=== PATIENT | male | born 2000 | race African-American/Black ===

== ENCOUNTER 2025-02-05 19:57 | Emergency (ER) | payer SELFPAY ==
[2025-02-05] VITALS (14 sets, daily range): BP systolic 134–145; BP diastolic 83–92; PULSE 72–94; RESP 15–26; TEMP 37.2; O2SAT 98–100
--- OUTSIDE RECORDS SUMMARY | 2025-02-05 22:30 | XMS_ITS | Clinical Summary ---
Author Organization [facility] Address [facility] [place] [address] Care Team Providers Care Fitness And Wellness Manager Name Role Phone George Lynn MD Unavailable Violeta Núñez PhD Unavailable Claudia Felix PLASTICS BENCH MECHANIC Unavailable Alison Troncoso B.A. Unavailable Unavailable Don Niño MD Primary Care Provider [phone] Mercedes Quiles MA Unavailable Unavailable Lois Maxwell Unavailable Unavailable Allergies No known active allergies Medications fluticasone propionate (FLOVENT HFA) 110 mcg/actuation inhalerIndicati ons:Asthma Inhale 2 puffs 2 (two) times a day Rinse mouth with water after use. Do not swallow. 3 each 4 01/05/2023 Active albuterol HFA (PROVENTIL HFA,VENTOLIN HFA,PROAIR HFA) 90 mcg/actuation inhalerIndicati ons:Asthma Inhale 2 puffs every 6 (six) hours as needed for wheezing 1 each 1 01/05/2023 Active Active Problems Problem Noted Date Diagnosed Date Molluscum contagiosum 01/19/2020 Assessment & Plan (01/19/2020 3:15 PM CDT): Present on R arm and L eyelid No intervention required. Can see Dermatology if he likes. 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 [employer] scholarship information given. Assessment & Plan (03/17/2019 9:51 AM CDT): -CBC and CMP today with results pending. -Scholarship information given for childhood cancer survivors. 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 CBC, BMP, Ferritin, Triglycerides. Return for annual visits. Regarding report of recurrent boils, Doc needs to schedule an appointment with his First Coat Sander. He can discuss concerns with pain at his port scar as well. Assessment & Plan (01/19/2020 3:16 PM CDT): Clinically remains in remission. CBC, BMP, Ferritin with normal results. Triglycerides pending. Assessment & Plan (03/17/2019 9:51 AM CDT): Clinically remains in remission. CBC, BMP, Ferritin, Triglycerides pending. Assessment & Plan (03/15/2018 9:51 AM CDT): CBC, BMP, Ferritin, Triglycerides drawn with normal results. Hypertension 11/07/2010 Resolved Problems Problem Noted Date Diagnosed Date Resolved Date Scar tissue 03/17/2019 02/10/2020 Assessment & Plan (03/17/2019 9:49 AM CDT): Sensitivity around port scar since his port was removed years ago. Scar not large, does not seem like a candidate for surgical revision. Furuncle 07/31/2012 02/10/2020 Assessment & Plan (03/15/2018 9:52 AM CDT): Will refer to dermatology for recommendations for prevention/treatment due to the chronic, frequent, bothersome nature and risk for infection with non-intact skin. Vomiting 06/07/2011 02/10/2020 Localized swelling of both lower legs 04/04/2011 02/10/2020 Immunizations Immunization Administration Dates Next Due Influenza, Quadrivalent, Rec ombinant, Egg Free, Preservative Free, Intramuscular 02/10/2020 Influenza, Quadrivalent, Spl it, Preservative Free, Intramuscular 04/05/2019 Tdap 01/05/2023 Surgical History Surgery Date Site/Laterality Comments BONE MARROW BIOPSY Biopsy Bone Marrow - no overt evidence of hemophagocytosis in pathology report, although rare hemophagocytes were seen by Dr. 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 (Added by TW Conv) CENTRAL VENOUS CATHETER INSERTION Central IV Line With Subcutaneous Foreman Mediport - (Added by TW Conv) Medical History Medical History Date Comments Personal history of other di seases of the respiratory system Personal history of asthma - (Added by TW Conv) Essential (primary) hypertension Hypertension - steroid-induced (Added by TW Conv) Other histiocytosis syndromes (HCC) Hemophagocytic syndrome - (Added by TW Conv) Family History Medical History Relation Name Comments Hyperlipidemia Father Lupus Mother Asthma Other Asthma - father (Added by TW Conv) Relation Name Status Comments Father Alive Mother Alive Other Social History Tobacco Use Types Packs/Day Years Used Date Smoking Tobacco: Never Smokeless Tobacco: Never Tobacco Cessation:Counseling Given: Not Answered Alcohol Use Standard Drinks/Week Comments Never 0 (1 standard drink = 0.6 oz pur e alcohol) AUDIT-C Answer Date Recorded Q1: How often do you have a drink containing alc ohol? Monthly or less 01/05/2023 Q2: How many drinks containi ng alcohol do you have on a typical day when you are drinking? 1 or 2 01/05/2023 Frequency of Binge Drinking Not on file 09/2022 Sex and Gender Information Value Date Recorded Sex Assigned at Not on file Legal Sex Male 1:33 AM CHIEF LIBRARIAN BRANCH Gender Identity Not on file Sexual Orientation Not on file Occupation Industry Job Start Date Job End Date student Not on file Not on file Not on file Obstetrics History Last Filed Vital Signs Vital Sign Reading Time Taken Comments Blood Pressure 111/79 01/05/2023 1:56 PM CDT Pulse 69 01/05/2023 1:56 PM CDT Temperature 36.5 C (97.7 F) 01/05/2023 1:56 PM CDT Respiratory Rate 18 01/02/2022 3:00 PM CDT Oxygen Saturation 98% 01/05/2023 1:56 PM CDT Inhaled Oxygen Concentration - - Weight 108.5 kg (239 lb 4.8 oz) 01/05/2023 1:56 PM CDT Height 183 cm (6' 0.05) 01/02/2022 3:00 PM CDT Body Mass Index 32.41 01/02/2022 3:00 PM CDT Plan of Treatment Health Maintenance Due Date Last Done Comments Depression Screening 2001 Varicella Vaccines (1 of 2 - 13+ 2-dose series) 2014 HPV Vaccines (1 - Male 3-dos e series) 2016 Meningococcal B Vaccine (1 o f 2 - Standard) 2017 Hepatitis B Screening 09/09/2019 Pneumococcal vaccine <65 (1 of 2 - PCV) 2020 Zoster Vaccine (1 of 2) 2020 Regular Well Visit/Exam 18-64 01/06/2024, 02/09/2021, 02/10/2020 Influenza Vaccine (#1) 2025 02/10/2020, 2018 DTaP/Tdap/Td Vaccine (2 - Td or Tdap) 01/05/2033 01/05/2023 Hepatitis C Screening Completed 01/05/2023 , 02/09/2021, 02/09/2021, Additional history exists Procedures Procedure Name Priority Date/Time Associated Diagnosis Comments HEPATITIS C ANTIBODY Routine 01/05/2023 2:26 PM CDT Screen for STD (sexually transmitted disease) from Last 3 Months or Most Recently Relevant to Health Maintenance Results * Hepatitis C antibody (01/05/2023 2:26 PM CDT) A-HCV II 0.08 Negative <0.90 [facility] Comment: <=0.9 negative 0.9-<1.0 borderline >= 1 positive Blood 01/05/2023 2:26 PM CDT 01/05/2023 2:43 PM CDT Don Niño MD LAB MICROBIOLOGY - GENERA L ORDERABLES Final Result Performing Organization Address City/State/[facility] Co de Phone Number [facility] [address] [place] [address] from Last 3 Months or Most Recently Relevant to Health Maintenance Insurance [facility] CHOICE PLUS [facility] CHOICE PLUS [facility] CHOICE PLUS CHOICE PLUS [place] [id number] [facility] CHOICE PLUS CHOICE PLUS [facility] CHOICE PLUS Care Teams Fitness And Wellness Manager Relationship Specialty Start Date End Date Don Niño MD PCP - General Internal Medicine 01/15/20 George Lynn MD Consulting Physician Pediatric Hematology and Oncology 02/25/19 Violeta Núñez, PhD Nurse Practitioner Pediatric Hematology and Oncology 02/25/19 Claudia Felix NP Nurse Practitioner Pediatric Hematology and Oncology 02/25/19 Alison Troncoso B.A. E Commerce Marketing ManagerKeno Clerk Hematology and Oncology 02/25/19 Mercedes Quiles MA E Commerce Marketing Manager 12/30/21 Lois Maxwell Primary Travel Manager 12/30/21
--- OUTSIDE RECORDS SUMMARY | 2025-02-05 22:30 | XMS_ITS | Clinical Summary ---
Author Organization [facility] Address [address] [place] [address] Care Team Providers Care Seater Assembler Name Role Phone Unavailable Primary Care Provider Unavailabl e Source Comments [facility],non-owned Affiliates and Associated Physician Practices is amultiple site organization consisting of ambulatory clinics and hospital sitesin [place], [place], [place] and [place]. This disclosure is being madepursuant to the Care Everywhere program and may not contain all information available regarding this patient. Last updated 18.[facility] Allergies No known active allergies Medications * Be aware that medications may not be up to date on this document. Alwaysverify current medications with the patient. albuterol HFA (Proventil; Ventolin; Proair) 108 (90 Base) MCG/ACT inhaler INHALE 2 PUFFS BY MOUTH EVERY 4 HOURS FOR 7 DAYS NEEDED FOR WHEEZING Active fluticasone hfa 110 (Flovent HFA 110) 110 MCG/ACT inhaler Inhale 2 (two) puffs by mouth 2 times daily 01/05/2023 Active Active Problems No known active problems Social History Tobacco Use Types Packs/Day Years Used Date Smoking Tobacco: Never Assessed PHQ-2 Answer Date Recorded Patient Health Questionnaire-2 Score 1 03/31/2024 Sex and Gender Information Value Date Recorded Sex Assigned at Not on file Legal Sex Male 8:30 AM CDT Gender Identity Not on file Sexual Orientation Not on file Plan of Treatment Health Maintenance Due Date Last Done Comments HIV SCREENING 2016 HPV VACCINE (1 - Male 3-dose series) 2016 MENINGOCOCCAL (Group B) VACCINE SHARED DECISION-MAKING (1 of 2 - Standard) 2017 HEPATITIS C SCREENING 09/04/2019 DTAP/TDAP/TD VACCINES (1 - Tdap) 2020 HEPATITIS B VACCINE (1 of 3 - 19+ 3-dose series) 2020 COVID-19 VACCINE (1 2023-2 5 season) 2024 DEPRESSION SCREENING 06/04/2024 INFLUENZA VACCINE (#1) 2025 0, 04/05/2019 ZOSTER VACCINE (1 of 2) 09/09/2051 HIB VACCINE Aged Out No longer eligi ble based on patient's age to complete this topic MENINGOCOCCAL GROUPS A/C/Y/W VACCINE Aged Out No longer eligible b ased on patient's age to complete this topic PNEUMOCOCCAL VACCINE Aged Out No long er eligible based on patient's age to complete this topic Insurance [facility]
--- NOTE | 2025-02-05 22:41 | ED_ITS ---
HPI - General Adult General Chief complaint: Unspecified Stated complaint: off balance, fatigue, light headed x4 days Time Seen by Provider: 02/05/25 21:26 History of Present Illness HPI narrative: Patient is a 24-year-old male who presents to the ER complaints of lightheadedness, headache, fatigue, and ?feeling off balance. He reports his symptoms started earlier today. Patient also endorses slight shortness of breath when he was working out. He reports last time he had the symptoms was in 2020 when he had COVID. Patient is requesting STD testing, mono test, and COVID test. He reports he recently had a contact with someone who was positive for mono. Patient endorses a history of asthma and HLH. He denies any urinary symptoms, recent fevers, chest pain or cough. Related Data Allergies Allergy/AdvReac Type Severity Reaction Status Date / Time No Known Allergies Allergy Verified 02/05/25 20:38 Review of Systems 2 Review of Systems: All systems reviewed & are unremarkable except as noted in HPI and below Exam 2 Narrative: GENERAL: Well appearing, well-nourished, non-toxic, in no acute distress. HEAD: Normocephalic, atraumatic. NECK: Supple. No adenopathy, no masses. RESPIRATORY: Airway patent, respirations nonlabored. Clear to auscultation bilaterally, no rales, rhonchi, wheezing. CARDIOVASCULAR: Regular rate and rhythm without murmurs, rubs, or gallops. Peripheral pulses 2+ and equal bilaterally. ABDOMINAL: Soft, nontender, nondistended, no hepatosplenomegaly. Normoactive BS. MUSCULOSKELETAL: Moves all extremities. Strength/ROM intact without gross deformities. SKIN: Warm, dry, normal color. No rashes. NEURO: A&O X3. Speech clear. Cranial nerves II-XII intact. No ataxic movements. PSYCHIATRIC: Appropriate mood and affect. Normal interaction. Course Vital Signs Vital signs: Vital Signs Temperature 37.2 C 02/05/25 20:34 Pulse Rate 75 02/05/25 20:34 Respiratory Rate 16 02/05/25 20:34 Blood Pressure 145/83 H 02/05/25 20:34 Pulse Oximetry 98 02/05/25 20:34 Oxygen Delivery Room Air 02/05/25 20:34 Temperature 37.2 C 09/04/25 20:34 Pulse Rate 72 02/05/25 21:25 Respiratory Rate 16 02/05/25 20:34 Blood Pressure 145/83 H 02/05/25 20:34 Pulse Oximetry 98 02/05/25 20:34 Oxygen Delivery Room Air 02/05/25 20:34 Medical Decision Making MDM Narrative Medical decision making narrative: Patient is a 24-year-old male who presents to the ER complaints of lightheadedness, headache, fatigue, and ?feeling off balance. He reports his symptoms started earlier today. Patient also endorses slight shortness of breath when he was working out. He reports last time he had the symptoms was in 2020 when he had COVID. Patient is requesting STD testing, mono test, and COVID test. He reports he recently had a contact with someone who was positive for mono. Patient endorses a history of asthma and HLH. He denies any urinary symptoms, recent fevers, chest pain or cough. Labs Ordered: CBC, CMP, D-dimer, COVID/flu/RSV, magnesium, TSH, mono test, GC chlamydia, Trichomonas, UA Imaging Ordered: None necessary Medications Ordered: 1 L normal saline IV bolus Results: Patient's CBC was unremarkable for any acute abnormalities. His D- dimer was negative. Patient's chemistry indicates a BUN of 26, creatinine of 1.34, bilirubin of 1.4, AST of 80, ALT of 61. His TSH was 4.850. Patient's urinalysis was unremarkable. His respiratory swab was negative along with his STD panel. Diagnosis: Dizziness, mild dehydration, abnormal TSH Risks: HEART score: low risk HEART Score for Major Cardiac Events from [email or web address] on 02/06/2025 All calculations should be rechecked by clinician prior to use RESULT SUMMARY: 1 points Low Score (0-3 points) Risk of MACE of 0.9-1.7%. INPUTS: History ?> 0 = Slightly suspicious EKG ?> 0 = Normal Age ?> 0 = <45 Risk factors ?> 1 = 1-2 risk factors Initial troponin ?> 0 = <Normal limit Patient Education/Shared MDM: Results of lab work shared with patient. He was advised to use his protein shakes with caution. Patient strongly advised to maintain hydration status upon discharge and follow-up with a PCP as soon as possible. He will not be discharged home with any new prescriptions. Strict return precautions provided. Patient verbalized understanding and is in agreement with plan. Vital signs stable at time of discharge. All questions answered. Differential Diagnosis Differential Diagnosis: TRAVIS, abnormal TSH, fatty liver disease, UTI, mono, COVID/flu/RSV Vital Signs Vital Signs: Vital Signs Temperature 37.2 C 02/05/25 20:34 Pulse Rate 75 02/05/25 20:34 Respiratory Rate 16 02/05/25 20:34 Blood Pressure 145/83 H 02/05/25 20:34 Pulse Oximetry 98 02/05/25 20:34 Oxygen Delivery Room Air 02/05/25 20:34 Temperature 37.2 C 02/05/25 20:34 Pulse Rate 72 02/05/25 21:25 Respiratory Rate 16 02/05/25 20:34 Blood Pressure 145/83 H 02/05/25 20:34 Pulse Oximetry 98 02/05/25 20:34 Oxygen Delivery Room Air 02/05/25 20:34 Lab Data Lab results reviewed: Yes I reviewed the patient's lab results. 02/05/25 23:22 02/05/25 23:22 Labs: Lab Results 02/05/25 02/05/25 02/05/25 Range/Units 22:12 22:13 23:22 WBC 7.6 (4.5-10.0) K/mm3 RBC 5.48 (4.6-6.20) M/mm3 Hgb 16.6 (14.0-18.0) g/dL Hct 47.8 (42.0-52.0) % MCV 87.2 (80-100) fl MCH 30.3 (26-34) pg MCHC 34.7 (32-36) g/dl RDW 11.8 (11.5-14.5) % Plt Count 236 (150-375) k/mm3 MPV 10.2 (7.4-10.4) fl Immature Gran % (Auto) 0.1 (0-0.5) % Neut % (Auto) 55.5 (45.5-73.1) % Lymph % (Auto) 37.0 (18.3-44.2) % [place] % (Auto) 5.8 (2.6-8.5) % Eos % (Auto) 1.2 (0-4.4) % Baso % (Auto) 0.4 (0.2-1.2) % Lymph # (Auto) 2.80 (0.9-3.2) K/mm3 [place]duff[place] # (Auto) 0.4 (0.1-0.6) K/mm3 Eos # (Auto) 0.1 (0-0.3) K/mm3 Baso # (Auto) 0.0 (0.0-0.1) K/mm3 Abs Immat Gran (auto) 0.01 (0.00-0.031) K/mm3 Absolute Neuts (auto) 4.2 (1.3-6.7) K/mm3 Absolute Nucleated RBC 0.000 (0.0-0.012) K/mm3 Nucleated RBC % 0.0 (0.0-0.2) % D-Dimer < 0.27 (<0.48) ug/mL Sodium 137 (137-145) mmol/L Potassium 3.8 (3.4-5.0) mmol/L Chloride 102 (98-107) mmol/L Carbon Dioxide 26 (22-30) mmol/L Anion Gap 9 (4-12) mmol/L BUN 26 H (9-20) mg/dL Creatinine 1.34 H (0.7-1.3) mg/dL Estim Creat Clear Calc 89 ml/min Estimated GFR > 60 (59 - ) Glucose 90 (65-110) mg/dL Calcium 9.6 (8.4-10.2) mg/dL Magnesium 1.8 (1.6-2.3) mg/dL Total Bilirubin (0.2-1.3) mg/dL AST (17-59) U/L ALT (6-50) U/L Alkaline Phosphatase (38-126) U/L Total Protein (6.3-8.2) g/dL Albumin (3.5-5.1) g/dL TSH (Reflex) (0.465-4.68) uIU/mL Free T4 Urine Color Yellow (Yellow) Urine Appearance Clear (Clear) Urine pH 5.5 (5.0-9.0) Ur Specific [place] 1.029 (1.001-1.035) Urine Protein Negative (Negative) mg/dL Urine Glucose (UA) Negative (Negative) mg/dL Urine Ketones Negative (Negative) mg/dL Ur Blood (Man) Negative (Negative) Urine Nitrate Negative (Negative) Urine Bilirubin Negative (Negative) Urine Urobilinogen 1.0 (<2.0) mg/dL Leukocyte Esterase Rfl Negative (Negative) LATOYA/UL C. trachomatis (PCR) Not detected (NOT DETECTE) Monoscreen (Negative) Influenza A (RT-PCR) (Negative) Influenza B (RT-PCR) (Negative) N. gonorrhoeae (PCR) Not detected (NOT DETECTE) RSV (RT-PCR) (Negative) SARS-CoV-2 RNA (RT-PCR) (Negative) T. vaginalis (PCR) Not detected (NOT DETECTE) 02/05/25 Range/Units 23:22 WBC (4.5-10.0) K/mm3 RBC (4.6-6.20) M/mm3 Hgb (14.0-18.0) g/dL Hct (42.0-52.0) % MCV (80-100) fl MCH (26-34) pg MCHC (32-36) g/dl RDW (11.5-14.5) % Plt Count (150-375) k/mm3 MPV (7.4-10.4) fl Immature Gran % (Auto) (0-0.5) % Neut % (Auto) (45.5-73.1) % Lymph % (Auto) (18.3-44.2) % [place]duff[place] % (Auto) (2.6-8.5) % Eos % (Auto) (0-4.4) % Baso % (Auto) (0.2-1.2) % Lymph # (Auto) (0.9-3.2) K/mm3 [place] # (Auto) (0.1-0.6) K/mm3 Eos # (Auto) (0-0.3) K/mm3 Baso # (Auto) (0.0-0.1) K/mm3 Abs Immat Gran (auto) (0.00-0.031) K/mm3 Absolute Neuts (auto) (1.3-6.7) K/mm3 Absolute Nucleated RBC (0.0-0.012) K/mm3 Nucleated RBC % (0.0-0.2) % D-Dimer (<0.48) ug/mL Sodium (137-145) mmol/L Potassium (3.4-5.0) mmol/L Chloride (98-107) mmol/L Carbon Dioxide (22-30) mmol/L Anion Gap (4-12) mmol/L BUN (9-20) mg/dL Creatinine (0.7-1.3) mg/dL Estim Creat Clear Calc ml/min Estimated GFR (59 - ) Glucose (65-110) mg/dL Calcium (8.4-10.2) mg/dL Magnesium Cancelled (1.6-2.3) mg/dL Total Bilirubin 1.4 H (0.2-1.3) mg/dL AST 80 H (17-59) U/L ALT 61 H (6-50) U/L Alkaline Phosphatase 109 (38-126) U/L Total Protein 8.2 (6.3-8.2) g/dL Albumin 4.5 (3.5-5.1) g/dL TSH (Reflex) 4.850 H (0.465-4.68) uIU/mL Free T4 Pending Urine Color (Yellow) Urine Appearance (Clear) Urine pH (5.0-9.0) Ur Specific [place] (1.001-1.035) Urine Protein (Negative) mg/dL Urine Glucose (UA) (Negative) mg/dL Urine Ketones (Negative) mg/dL Ur Blood (Man) (Negative) Urine Nitrate (Negative) Urine Bilirubin (Negative) Urine Urobilinogen (<2.0) mg/dL Leukocyte Esterase Rfl (Negative) LATOYA/UL C. trachomatis (PCR) (NOT DETECTE) Monoscreen Negative (Negative) Influenza A (RT-PCR) Negative (Negative) Influenza B (RT-PCR) Negative (Negative) N. gonorrhoeae (PCR) (NOT DETECTE) RSV (RT-PCR) Negative (Negative) SARS-CoV-2 RNA (RT-PCR) Negative (Negative) T. vaginalis (PCR) (NOT DETECTE) Discharge Plan Discharge Clinical Impression: Dizziness, Dehydration, mild, Abnormal thyroid stimulating hormone (TSH) level, Benign paroxysmal positional vertigo Patient Disposition: Home Condition: Stable Instructions: Antibiotic Form, Benign Paroxysmal Positional Vertigo (ED) Additional Instructions: Please return to the ER with any worsening symptoms. Follow-up with a primary care provider as soon as possible. You may take meclizine when you feel dizzy. Please remember to drink lots of water. Patient Language: Welsh Prescriptions: New meclizine 25 mg tablet 25 mg PO TID Qty: 20 0RF Follow-up/Referrals: Ally Davis DO [Physician, Family Practice] Referral Note: primary care provider PHYSICIAN,LEAD BUSINESS ANALYST [Primary Care Provider, Internal Medicine] Stand Alone Forms: Work/School Release IP Time of Disposition: 00:31
[2025-02-05 23:27] LABS: Hematocrit 47.8 % (42.0-52.0); Hemoglobin 16.6 g/dL (14.0-18.0); Immature Granulocyte Percent A 0.1 % (0-0.5); Lymphocytes Absolute Auto 2.80 K/mm3 (0.9-3.2); Mean Corpuscular HGB Conc 34.7 g/dl (32-36); Mean Corpuscular Hemoglobin 30.3 pg (26-34); Mean Corpuscular Volume 87.2 fl (80-100); Nucleated Red Blood Cells Absolute Auto 0.000 K/mm3 (0.0-0.012); Nucleated Red Blood Cells Perc 0.0 % (0.0-0.2); Platelet Count Result 236 k/mm3 (150-375); Red Blood Count 5.48 M/mm3 (4.6-6.20); White Blood Count 7.6 K/mm3 (4.5-10.0)
[2025-02-05 23:30] LABS: Trichomonas Vag PCR NOT DETECTED (NOT DETECTE)
[2025-02-05 23:39] LABS: Negative Monotest Control Negative (Negative); Positive Monotest Control Positive (Positive)
[2025-02-05 23:41] LABS: Alanine Aminotransferase 61 U/L (6-50); Albumin Level 4.5 g/dL (3.5-5.1); Alkaline Phosphatase 109 U/L (38-126); Anion Gap 9 mmol/L (4-12); Aspartate Amino Transferase 80 U/L (17-59); Bilirubin,Total 1.4 mg/dL (0.2-1.3); Blood Urea Nitrogen 26 mg/dL (9-20); Calcium 9.6 mg/dL (8.4-10.2); Carbon Dioxide 26 mmol/L (22-30); Chloride 102 mmol/L (98-107); Estimated CRCL calculation 89 ml/min; Estimated Glomerular Filt Rate > 60; Glucose 90 mg/dL (65-110); Magnesium 1.8 mg/dL (1.6-2.3); Potassium 3.8 mmol/L (3.4-5.0); Sodium 137 mmol/L (137-145); Total Protein 8.2 g/dL (6.3-8.2)
[2025-02-05 23:54] LABS: Add Urine Microscopic? NO; Appearance Urine Clear (Clear); Glucose Urine UA Negative (Negative); Leukocyte Esterase Ur Negative LEU/UL (Negative); Nitrate Urine Negative (Negative); Specific Grav Ur 1.029 (1.001-1.035)
[2025-02-05] MEDS: SODIUM CHLORIDE 0.9% IV 1,000 ML 999 ML IV CONT (23:58)
[2025-02-06] VITALS: PULSE 87; RESP 21
[2025-02-06 00:03] LABS: Influenza A QL RT-PCR Negative (Negative); Influenza B QL RT-PCR Negative (Negative); RSV RNA, RT-PCR Negative (Negative); SARS-CoV-2 RNA PCR Negative (Negative)
[2025-02-06 00:10] LABS: Thyroid Stimulating Hormone Reflex 4.850 uIU/mL (0.465-4.68)
[2025-02-06 00:15] VITALS: PULSE 83; RESP 21
[2025-02-06 00:30] VITALS: PULSE 81; RESP 19
[2025-02-06 00:45] VITALS: PULSE 85; RESP 23
[2025-02-06 04:45] LABS: Free T4 Free Thyroxine Reflex 0.96 ng/dL (0.78-2.19)
[2025-02-06 05:48] LABS: Total Triiodothyronine (T3) 1.12 NG/ML (0.82-1.58)
== END 2025-02-06 02:12 | disposition home or self-care (01) ==
PROVIDERS: Emergency Provider Registered Nurse
DX: H81.10 Benign paroxysmal vertigo, unspecified ear (principal); E86.0 Dehydration; R94.6 Abnormal results of thyroid function studies; Z20.822 Contact with and (suspected) exposure to COVID-19; D76.1 Hemophagocytic lymphohistiocytosis; J45.909 Unspecified asthma, uncomplicated; Z86.16 Personal history of COVID-19
CPT/HCPCS: 36415; 80053; 81003; 83735; 84439; 84443; 84480; 85025; 85380; 86308; 87491; 87591; 87637; 87661; 96360; 99284; J7030